=== PATIENT | female | born 1945 | race Caucasian/White ===

== ENCOUNTER 2017-04-18 18:22 | Emergency (ER) | payer MEDICARE, BC ==
[~2017-04-18 18:22] MED LIST: MULT-65 PO; NORV5TAB PO; OMPR20CCR PO; RALO1TAB13 PO; ROSU5 PO
[2017-04-18 18:28] VITALS: BP 141/73; PULSE 90; RESP 20; TEMP 98.2
--- NOTE | 2017-04-18 18:40 | PD ---
HPI Chief Complaint: Foreign Body Time Seen by Provider: 18:29 Travel History International Travel<30 days: No Contact w/Intl Traveler<30days: No Traveled to known affect area: No History of Present Illness HPI 71-year-old female complains of foreign body in throat. She was eating veggie sticks about 2 hours ago. It felt as if a small piece of one was stuck in her throat. She has been drinking water since an effort to help it pass however it has been unsuccessful. She denies pain per se however reports it is very uncomfortable. No difficulty breathing. No vomiting. She denies a history of esophageal disease or prior foreign body in esophagus. PFSH Past Medical History High Cholesterol: Yes Diminished Hearing: No GERD: Yes Hypertension: Yes Immunizations Current: Yes Past Surgical History Section: Yes Tonsillectomy: Yes Other Surgery: Yes (DEVIATED SEPTUM) Social History Alcohol Use: No Tobacco Use: No Substance Use: No Allergies-Medications (Allergen,Severity, Reaction): Coded Allergies: nitrofurantoin (Unverified Allergy, Severe, RASH, 09/27/16) Reported Meds & Prescriptions Reported Meds & Active Scripts Active Review of Systems Except as stated in HPI: all other systems reviewed are Neg Physical Exam Narrative GENERAL: 71-year-old female pleasant well-nourished well-developed no acute distress Vital Signs Date Time Temp Pulse Resp B/P (MAP) Pulse Ox O2 Delivery O2 Flow Rate FiO2 04/18/17 18:28 98.2 90 20 141/73 (95) SKIN: Warm and dry. HEAD: Atraumatic. Normocephalic. EYES: Pupils equal and round. No scleral icterus. No injection or drainage. ENT: No nasal bleeding or discharge. Mucous membranes pink and moist. Posterior oropharynx normal. NECK: Trachea midline. No JVD. CARDIOVASCULAR: Regular rate and rhythm. RESPIRATORY: No accessory muscle use. Clear to auscultation. Breath sounds equal bilaterally. GASTROINTESTINAL: Abdomen soft, non-tender, nondistended. Hepatic and splenic margins not palpable. MUSCULOSKELETAL: Extremities without clubbing, cyanosis, or edema. No obvious deformities. NEUROLOGICAL: Awake and alert. No obvious cranial nerve deficits. Motor grossly within normal limits. Five out of 5 muscle strength in the arms and legs. Normal speech. PSYCHIATRIC: Appropriate mood and affect; insight and judgment normal. Data Data Last Documented VS Vital Signs Date Time Temp Pulse Resp B/P (MAP) Pulse Ox O2 Delivery O2 Flow Rate FiO2 04/18/17 18:28 98.2 90 20 141/73 (95) Orders Orders Al-Mag Hy-Si 40-40-4 Mg/Ml Liq (Mag-Al P (04/18/17 18:45) Lidocaine 2% Viscous (Xylocaine 2% Visco (04/18/17 18:45) Ed Discharge Order (04/18/17 18:46) MDM Medical Decision Making Medical Screen Exam Complete: Yes Emergency Medical Condition: Yes Medical Record Reviewed: Yes Differential Diagnosis FB in esophagus, esophageal dysmotility, esophageal obstruction Narrative Course Case was discussed with GI. The patient is comfortable here tolerating oral intake without difficulty. She feels comfortable going home and follow-up with GI in the morning with a plan for endoscopy in the AM. Diagnosis Primary Impression: Foreign body in esophagus Qualified Codes: T18.108A - Unspecified foreign body in esophagus causing other injury, initial encounter Referrals: Isaac Espino MD 1 day [place] body in esophagys. Dr Espino spoke with Dr Wolff. Endoscopy first thing this mornign to be arranged. Med/Other Pt SpecificInfo: No Change to Meds Disposition: 01 DISCHARGE HOME Condition: Stable Ren Wolff MD Apr 18, 2017 18:39
[2017-04-18] MEDS ORDERED: LIDOCAINE VISCOUS 2% SOLN 15 ML UDC PO ONE (18:45)
[2017-04-18] MEDS ORDERED: ALUMINUM/MAGNESIUM/SIMETH 30 ML CUP PO ONE (18:45)
[2017-04-18] MEDS ORDERED: COQ-30CA2 PO (18:50)
[2017-04-18] MEDS ORDERED: ZANT150T2 PO (18:50)
[2017-04-18] MEDS ORDERED: ROSU5 PO (18:50)
[2017-04-18] MEDS ORDERED: CALC12502 PO (18:50)
[2017-04-18] MEDS ORDERED: AMLO5 PO (18:50)
[2017-04-18] MEDS ORDERED: LEVO25TA4 PO (18:50)
[2017-04-18 19:30] VITALS: BP 138/91
== END 2017-04-18 19:33 | disposition home or self-care (01) ==
LOC: PHED 18:22
DX: T18.108A Unspecified foreign body in esophagus causing other injury, initial encounter (principal); E78.00 Pure hypercholesterolemia, unspecified; K21.9 Gastro-esophageal reflux disease without esophagitis; I10 Essential (primary) hypertension
CPT/HCPCS: 99283